=== PATIENT | male | born 1950 | race Two or more races ===

== ENCOUNTER 2017-07-04 09:54 | Emergency (ER) | payer MEDICARE ==
[2017-07-04 10:30] VITALS: TEMP 97.3; BMI 25.7
[2017-07-04] MEDS ORDERED: ONDANSETRON 4 MG/2 ML VIAL IVPUSH ONE (11:03)
[2017-07-04] MEDS ORDERED: MECLIZINE HCL 25 MG TABLET (FP) PO ONE (11:03)
[2017-07-04] MEDS ORDERED: METOCLOPRAMIDE HCL INJECTION 10 MG/2 ML VIAL IVPB ONE (11:04)
--- NOTE | 2017-07-04 11:05 | PDOC ---
History of Present Illness - General Chief Complaint: Nausea/Vomiting Stated Complaint: NAUSEA VOMITING Time Seen by Provider: 07/04/17 10:27 History Source: Patient Exam Limitations: No Limitations - History of Present Illness Initial Comments: 07/04/17 11:05 The patient is a 67M with a PMH of HTN and HLD who presents to the ER with complaints of dizziness. The patient states that his dizziness started on Tuesday out of nowhere. It was better as he laid down. He felt dizziness on Tuesday but it was much improved. This morning when he got up, he felt "a little dizzy" and then felt his symptoms worsen as he used the restroom. He states that he had associated CP for 45-50 seconds on the L side of his chest that did not radiate every time he felt a spinning sensation. He describes his dizziness as a room spinning sensation. He denies any dysarthria and diplopia or other changes in vision. Past History - Past Medical History Allergies/Adverse Reactions: Allergies Allergy/AdvReac Type Severity Reaction Status Date / Time No Known Allergies Allergy Verified 07/04/17 10:10 Home Medications: Ambulatory Orders Aspirin [Aspirin EC] 81 mg PO DAILY 07/04/17 Atorvastatin Ca [Lipitor] 40 mg PO HS 07/04/17 Hydrochlorothiazide 25 mg PO DAILY 07/04/17 Meclizine HCl [Antivert -] 25 mg PO BID #30 tablet 07/04/17 Metoprolol Succinate 25 mg PO DAILY 07/04/17 Ticagrelor [Brilinta] 90 mg PO BID 07/04/17 Cancer: Yes (prostate) COPD: No HTN: Yes - Surgical History Cardiac Surgery: Yes (cardiac cath 12/13) - Suicide/Smoking/Psychosocial Hx Smoking History: Never smoked Review of Systems - Review of Systems Able to Perform ROS?: Yes Comments:: 07/04/17 13:29 GENERAL/CONSTITUTIONAL: No fever or chills. No weakness. HEAD, EYES, EARS, NOSE AND THROAT: No change in vision. No ear pain or discharge. No sore throat. CARDIOVASCULAR: Positive for CP during spinning sensations. No palpitations or lightheadedness. RESPIRATORY: No cough, wheezing, shortness of breath, or hemoptysis. GASTROINTESTINAL: No nausea, vomiting, diarrhea, constipation, or abdominal pain. GENITOURINARY: No dysuria, frequency, hematuria, or change in urination. MUSCULOSKELETAL: No joint or muscle swelling or pain. No neck or back pain. SKIN: No rash or lesions. NEUROLOGIC: Positive for room spinning sensation. No headache, numbness, tingling, weakness, loss of consciousness, or change in strength/sensation. ENDOCRINE: No increased thirst. No abnormal weight change. HEMATOLOGIC/LYMPHATIC: No anemia, easy bleeding, or history of blood clots. ALLERGIC/IMMUNOLOGIC: No hives or skin allergy. Is the patient limited Sami proficient: No *Physical Exam - Vital Signs Last Vital Signs Temp Pulse Resp BP Pulse Ox 97.3 F L 73 18 154/92 100 07/04/17 10:10 07/04/17 10:10 07/04/17 10:10 07/04/17 10:10 07/04/17 10:10 - Physical Exam Comments: 07/04/17 13:30 GENERAL: Well developed, well nourished. Awake and alert. No acute distress. HEENT: Normocephalic, atraumatic. Hearing grossly normal. Moist mucous membranes. PERRLA, EOMI. No conjunctival pallor. Sclera are non-icteric. Oropharynx is clear. NECK: Supple. Full ROM. No JVD. No lymphadenopathy. CARDIOVASCULAR: Regular rate and rhythm. No murmurs, rubs, or gallops. PULMONARY: No evidence of respiratory distress. Lungs clear to auscultation bilaterally. No wheezing, rales or rhonchi. ABDOMINAL: Soft. Non-tender. Non-distended. No rebound or guarding. No organomegaly. Normoactive bowel sounds. GENITOURINARY: No CVA tenderness bilaterally. MUSCULOSKELETAL: Normal range of motion at all joints. No bony deformities or tenderness. EXTREMITIES: No cyanosis. No clubbing. No edema. No calf tenderness. SKIN: Warm and dry. Normal capillary refill. No rashes. No jaundice. NEUROLOGICAL: Alert, awake, appropriate. Cranial nerves 2-12 intact. No deficits to light touch and temperature in face, upper extremities and lower extremities. No motor deficits in the in face, upper extremities and lower extremities. Finger to nose normal, heel to dimas normal. Normal speech. Gait is steady, but slow and mildly ataxic. PSYCHIATRIC: Cooperative. Good eye contact. Appropriate mood and affect. Heart Score/ECG Review #1 ECG reviewed & interpreted by me at: 11:00 General ECG Interpretation: Sinus Rhythm, Normal Rate, Normal Intervals, No acute ischemic changes Compared to previous ECG there are: No significant change ED Treatment Course - LABORATORY CBC & Chemistry Diagram: 07/04/17 11:11 07/04/17 11:11 Medical Decision Making - Medical Decision Making 07/04/17 12:48 The patient is a 67M presenting with vertiginous symptoms. Reglan and meclizine have helped control his symptoms. He was able to ambulate to the restroom with improvement of his dizziness. He feels much better and is not nauseous. Will d/ c with meclizine. *DC/Admit/Observation/Transfer Diagnosis at time of Disposition: Dizziness - Discharge Dispostion Disposition: HOME Condition at time of disposition: Stable Admit: No - Prescriptions Prescriptions: Meclizine HCl [Antivert -] 25 mg PO BID #30 tablet - Referrals Referrals: Dionicio Donahue MD [Staff Physician] - - Patient Instructions Printed Discharge Instructions: Vertigo Additional Instructions: Please return to the ER if symptoms persist, worsen, or new symptoms arise. Please follow up with your primary care physician in 2-3 days. Please make an appointment with the neurologist. Please return to the ER if you have any signs or symptoms of chest pain, shortness of breath, uncontrollable fever, chills, nausea, vomiting, numbness, tingling, or weakness in any part of your body, changes in vision, or slurred speech. Please take your medications as prescribed. - Post Discharge Activity
[2017-07-04] MEDS ORDERED: METOCLOPRAMIDE HCL INJECTION 10 MG/2 ML VIAL ONE (11:12)
--- NOTE | 2017-07-04 11:16 | PDOC ---
Attending Attestation - Resident Resident Name: SivalandryYazan - ED Attending Attestation I have performed the following: I have examined & evaluated the patient, The case was reviewed & discussed with the resident, I agree w/resident's findings & plan, Exceptions are as noted - HPI HPI: 07/04/17 13:08 67y M hx of htn, hlm presents with complaint of dizzines. On Sat, felt episode of dizziness/vertigo briefly, but then felt better. He went to the bathroom this morning when he felt room spinning dizziness that lasted until he came to th D. The pt erports some nausae/vomiting. Hedenies any recent URI/cough, tinnitus, vision changes/diplopia, dysarthria, focal weakness, numnbe/sstingling , cp, sob, palpitations, fever/chills. Sypmtoms resolved at rest and worsened with moving his head around. Pts exam is unremarkble card: rrr pulm cta b/l neuro, no facial assymetric, strength 5/5 in upper/lower, sensation grossly symmetric in upper/lower extremities, finger to nose, rapid altrnating movements , heel dimas intact, normal gait suspect bppv no signs or symptoms suggestive of posterior cva o rcentral vertigo will dc the pt with meclizine and reglan for nausea will have pt fu with pmd - Physicial Exam PE: 07/05/17 08:15 se above - Medical Decision Making 07/05/17 08:15 see above Heart Score/ECG Review - ECG Impressions Comment:: 07/04/17 13:05 Twelve-lead EKG was performed and reviewed by me. There is normal sinus rhythm with a normal rate. rate of 64 The axis is normal. incomplete left bundle branch block
[2017-07-04 11:25] LABS: BASO % 0.6 % (0-2.0); HEMOGLOBIN 14.3 GM/dL (11.7-16.9); LYMPH % 22.5 % (8-40); MCH 28.9 pg (25.7-33.7); MCHC 32.5 g/dl (32.0-35.9); MEAN CELL VOLUME 88.8 fl (80-96); MEAN PLT VOLUME 7.8 fl (7.5-11.1); MONO % 7.6 % (3.8-10.2); NEUT % 68.3 % (42.8-82.8); PLATELET COUNT 186 K/MM3 (134-434); RBC 4.95 M/mm3 (4.00-5.60); RDW 13.5 % (11.9-15.9); WHITE BLOOD COUNT 5.5 K/mm3 (4.0-10.0)
[2017-07-04 11:43] LABS: INR 1.03 (0.82-1.09); PROTHROMBIN TIME (PATIENT) 11.6 SEC (9.98-11.88)
[2017-07-04] MEDS ORDERED: MECLIZINE HCL 25 MG TABLET (FP) ONE (11:43)
[2017-07-04 11:46] LABS: ACTIVATED PTT 32.1 SECONDS (26.9-34.4)
[2017-07-04 11:54] LABS: ALBUMIN 4.2 g/dl (3.4-5.0); ANION GAP 10 (8-16); BILIRUBIN,TOTAL 0.4 mg/dL (0.2-1.0); BLOOD UREA NITROGEN 24 mg/dL (7-18); CALCIUM 8.7 mg/dL (8.5-10.1); CHLORIDE 102 mmol/L (98-107); CO2 27 mmol/L (21-32); GLUCOSE,RANDOM 124 mg/dL (74-106); SGOT/AST 28 U/L (15-37); SGPT/ALT 48 U/L (12-78); SODIUM 139 mmol/L (136-145); TOT PROT 7.2 g/dl (6.4-8.2)
[2017-07-04 11:57] LABS: ALK PHOS 61 U/L (45-117)
--- NOTE | 2017-07-04 12:40 | EKG ---
Test Reason : Blood Pressure : / mmHG Vent. Rate : 064 BPM Atrial Rate : 064 BPM P-R Int : 204 ms QRS Dur : 114 ms QT Int : 428 ms P-R-T Axes : 047 006 020 degrees QTc Int : 441 ms NORMAL SINUS RHYTHM NONSPECIFIC ST AND T WAVE ABNORMALITY BORDERLINE ECG NO PREVIOUS ECGS AVAILABLE Confirmed by WILLY ESCOBEDO MD ([id number]) on 07/04/2017 12:40:21 PM Referred By: Confirmed By:WILLY ESCOBEDO MD
[2017-07-04 13:50] VITALS: BP 158/94; PULSE 65
== END 2017-07-04 13:50 | disposition home or self-care (01) ==
LOC: JER 09:54
PROC: 3E033GC Introduction of Other Therapeutic Substance into Peripheral Vein, Percutaneous Approach (ICD-10-PCS; principal; 2017-07-04)
DX: R42 Dizziness and giddiness (principal); I10 Essential (primary) hypertension; E78.00 Pure hypercholesterolemia, unspecified; Z85.46 Personal history of malignant neoplasm of prostate
CPT/HCPCS: 36415; 80053; 82550; 82553; 84484; 85025; 85610; 85730; 93005; 93010; 96374; 99282-25

== ENCOUNTER 2020-04-07 18:05 | Observation (INO) | payer OTHER ==
[2020-04-07 18:37] VITALS: BMI 27.6
[2020-04-07 20:53] LABS: BASO % 0.7 % (0-2.0); EOS % 2.4 % (0-4.5); HEMATOCRIT 42.4 % (35.4-49); HEMOGLOBIN 14.2 GM/dL (11.7-16.9); LYMPH % 39.4 % (8-40); MCH 29.6 pg (25.7-33.7); MCHC 33.4 g/dl (32.0-35.9); MEAN CELL VOLUME 88.5 fl (80-96); MEAN PLT VOLUME 7.7 fl (7.5-11.1); MONO % 13.5 % (3.8-10.2); PLATELET COUNT 192 K/MM3 (134-434); RDW 14.7 % (11.9-15.9); WHITE BLOOD COUNT 4.8 K/mm3 (4.0-10.0)
[2020-04-07 21:07] LABS: INR 0.93 (0.83-1.09); PROTHROMBIN TIME (PATIENT) 11.5 SEC (9.7-13.0)
[2020-04-07 21:10] LABS: CHLORIDE 103 mmol/L (98-107); SODIUM 139 mmol/L (136-145)
[2020-04-07 21:12] LABS: CALCIUM 9.3 mg/dL (8.5-10.1)
[2020-04-07 21:13] LABS: ALBUMIN 4.1 g/dl (3.4-5.0); ANION GAP 4 MMOL/L (8-16); BLOOD UREA NITROGEN 16.6 mg/dL (7-18); CO2 32 mmol/L (21-32); GLUCOSE,RANDOM 103 mg/dL (74-106)
[2020-04-07 21:16] LABS: SGOT/AST 24 U/L (15-37); SGPT/ALT 46 U/L (13-61)
[2020-04-07 21:17] LABS: BILIRUBIN,TOTAL 0.3 mg/dL (0.2-1)
[2020-04-07 21:18] LABS: TOT PROT 7.3 g/dl (6.4-8.2)
[2020-04-07 21:19] LABS: ALK PHOS 67 U/L (45-117)
[2020-04-07 21:21] LABS: N-TERMINAL BNP 22.4 pg/ml (5-125)
[2020-04-07] MEDS ORDERED: ASPIRIN 81 MG CHEWABLE TABLETS PO ONE (21:59)
[2020-04-07] MEDS ORDERED: ASPIRIN 81 MG CHEWABLE TABLETS ONE (22:29)
[2020-04-08 04:39] LABS: URINE APPEARANCE CLEAR; URINE BILIRUBIN NEGATIVE (NEGATIVE); URINE COLOR YELLOW; URINE GLUCOSE (UA) NEGATIVE (NEGATIVE); URINE KETONE NEGATIVE (NEGATIVE); URINE LEUK ESTERASE NEGATIVE (NEGATIVE); URINE NITRITE NEGATIVE (NEGATIVE); URINE PROTEIN NEGATIVE (NEGATIVE); URINE UROBILINOGEN 0.2 mg/dL (0.2-1.0)
[2020-04-08 07:22] LABS: BASO % 0.5 % (0-2.0); EOS % 2.3 % (0-4.5); HEMATOCRIT 42.1 % (35.4-49); HEMOGLOBIN 13.8 GM/dL (11.7-16.9); LYMPH % 45.3 % (8-40); MCH 28.8 pg (25.7-33.7); MCHC 32.8 g/dl (32.0-35.9); MEAN CELL VOLUME 87.7 fl (80-96); MEAN PLT VOLUME 7.8 fl (7.5-11.1); MONO % 11.7 % (3.8-10.2); NEUT % 40.2 % (42.8-82.8); PLATELET COUNT 197 K/MM3 (134-434); RDW 14.7 % (11.9-15.9); WHITE BLOOD COUNT 4.6 K/mm3 (4.0-10.0)
[2020-04-08 07:35] LABS: CHLORIDE 104 mmol/L (98-107); POTASSIUM 4.6 mmol/L (3.5-5.1); SODIUM 141 mmol/L (136-145)
[2020-04-08 07:44] LABS: CALCIUM 9.7 mg/dL (8.5-10.1); GLUCOSE,RANDOM 97 mg/dL (74-106)
[2020-04-08 07:45] LABS: ALBUMIN 3.8 g/dl (3.4-5.0); ANION GAP 5 MMOL/L (8-16); BLOOD UREA NITROGEN 16.5 mg/dL (7-18); CO2 32 mmol/L (21-32); MAGNESIUM 2.3 mg/dL (1.8-2.4)
[2020-04-08 07:47] LABS: CHOLESTEROL 195 mg/dL (50-200); PHOSPHOROUS 4.5 mg/dL (2.5-4.9); SGOT/AST 22 U/L (15-37)
[2020-04-08 07:48] LABS: BILIRUBIN,TOTAL 0.5 mg/dL (0.2-1); LDL CHOLESTEROL (ONLY SJRH) 103 mg/dL (5-100); TRIGLYCERIDES 248 mg/dL (0-150)
[2020-04-08 07:49] LABS: HDL CHOLESTEROL 60 mg/dL (40-60); SGPT/ALT 44 U/L (13-61); TOT PROT 7.1 g/dl (6.4-8.2)
[2020-04-08 07:50] LABS: ALK PHOS 60 U/L (45-117)
[2020-04-08] MEDS ORDERED: ENOXAPARIN NA (PORCINE) 40 MG/0.4 ML DISP.SYRIN SQ SCH (10:00)
[2020-04-08] MEDS ORDERED: ASPIRIN COATED 81 MG TABLET.EC PO SCH (10:00)
[2020-04-08] MEDS ORDERED: ASPIRIN COATED 81 MG TABLET.EC ONE (10:15)
[2020-04-08] MEDS ORDERED: ENOXAPARIN NA (PORCINE) 40 MG/0.4 ML DISP.SYRIN SQ ONE (10:15)
[2020-04-08] MEDS ORDERED: metoPROLOL SUCCINATE 25 MG TAB.SR.24H (FP) PO SCH (11:00)
[2020-04-08] MEDS ORDERED: TICAGRELOR 60 MG TABLET PO SCH (11:00)
[2020-04-08] MEDS ORDERED: RANOLAZINE E.R. 500 MG TABLET (FP) PO SCH (13:15)
[2020-04-08] MEDS ORDERED: TICAGRELOR 90 MG TABLET PO ONE (13:28)
[2020-04-08 13:43] VITALS: BP 137/74; PULSE 50; TEMP 97
[2020-04-08] MEDS ORDERED: ATORVASTATIN CA 40 MG TABLET (FP) PO SCH (22:00)
== END 2020-04-08 15:36 | disposition home or self-care (01) ==
LOC: JER 18:05 → JERBED 22:02 → INTOOBSV 23:58 → OBSVTOIN 23:58
PROVIDERS: ADMIT Internal Medicine; ATTEND Internal Medicine
PROC: 3E023GC Introduction of Other Therapeutic Substance into Muscle, Percutaneous Approach (ICD-10-PCS; principal; 2020-04-07)
DX: I24.9 Acute ischemic heart disease, unspecified (principal); I25.10 Atherosclerotic heart disease of native coronary artery without angina pectoris; I11.9 Hypertensive heart disease without heart failure; G89.29 Other chronic pain; Z95.5 Presence of coronary angioplasty implant and graft; E78.5 Hyperlipidemia, unspecified; Z85.46 Personal history of malignant neoplasm of prostate; R00.1 Bradycardia, unspecified; Z29.9 Encounter for prophylactic measures, unspecified; R07.9 Chest pain, unspecified
CPT/HCPCS: 36415; 71046-TC-FY; 80053; 80061; 81003; 82550; 82553; 83721; 83735; 83880; 84100; 84443; 84484; 85025; 85610; 93005; 93010; 93306-TC; 93971-TC; 96372; 99285-25; C9803; G0378; U0003

== ENCOUNTER 2022-07-24 16:12 | Observation (INO) | payer OTHER ==
[2022-07-24] MEDS ORDERED: FAMOTIDINE 20 MG/50 ML IVPB 20 MG/50 ML MG IVPB ONE ×2 (17:04→17:16)
[2022-07-24] MEDS ORDERED: MAG HYDROX/AL HYDROX/SIMETH -MYLANTA- ORAL SUSPENSION PO ONE (17:04)
[2022-07-24] MEDS ORDERED: MAG HYDROX/AL HYDROX/SIMETH 30 ML UNIT-DOSE CUP ONE (17:16)
[2022-07-24 17:37] LABS: BASO % 0.7 % (0-2.0); EOS % 1.6 % (0-4.5); HEMOGLOBIN 13.7 GM/dL (11.7-16.9); LYMPH % 37.3 % (8-40); MCH 29.9 pg (25.7-33.7); MCHC 34.2 g/dl (32.0-35.9); MEAN CELL VOLUME 87.5 fl (80-96); MEAN PLT VOLUME 7.1 fl (7.5-11.1); MONO % 12.9 % (3.8-10.2); NEUT % 47.5 % (42.8-82.8); PLATELET COUNT 207 10^3/uL (134-434); RBC 4.57 M/mm3 (4.00-5.60); RDW 14.8 % (11.9-15.9); WHITE BLOOD COUNT 5.3 K/mm3 (4.0-10.0)
[2022-07-24 19:01] LABS: CALCIUM 9.5 mg/dL (8.5-10.1)
[2022-07-24 19:04] LABS: CREATININE 1.1 mg/dL (0.55-1.3)
[2022-07-24 19:06] LABS: BILIRUBIN,TOTAL 0.4 mg/dL (0.2-1); TOT PROT 7.3 g/dl (6.4-8.2)
[2022-07-24] MEDS ORDERED: ENOXAPARIN NA (PORCINE) 40 MG/0.4 ML DISP.SYRIN SQ ONE (21:17)
[2022-07-24] MEDS: ENOXAPARIN NA (PORCINE) 40 MG/0.4 ML DISP.SYRIN SQ SCH (21:26)
[2022-07-24] MEDS ORDERED: ATORVASTATIN CA 80 MG TABLET (FP) PO SCH (22:00)
[2022-07-25 02:06] VITALS: RESP 20
[2022-07-25 02:28] VITALS: BMI 26.4
[2022-07-25 06:44] VITALS: TEMP 98.2
[2022-07-25 08:20] LABS: HEMATOCRIT 39.1 % (35.4-49); HEMOGLOBIN 13.4 GM/dL (11.7-16.9); MCH 29.9 pg (25.7-33.7); MCHC 34.3 g/dl (32.0-35.9); MEAN CELL VOLUME 87.1 fl (80-96); MEAN PLT VOLUME 7.9 fl (7.5-11.1); PLATELET COUNT 213 10^3/uL (134-434); RBC 4.49 M/mm3 (4.00-5.60); RDW 14.4 % (11.9-15.9); WHITE BLOOD COUNT 5.3 K/mm3 (4.0-10.0)
[2022-07-25 08:37] LABS: CALCIUM 9.2 mg/dL (8.5-10.1)
[2022-07-25 08:38] LABS: ALBUMIN 3.8 g/dl (3.4-5.0); BLOOD UREA NITROGEN 16.7 mg/dL (7-18)
[2022-07-25 08:41] LABS: BILIRUBIN,TOTAL 0.7 mg/dL (0.2-1)
[2022-07-25 08:42] LABS: TOT PROT 6.6 g/dl (6.4-8.2)
[2022-07-25 09:26] VITALS: BP 168/88; PULSE 68
[2022-07-25] MEDS: ENOXAPARIN NA (PORCINE) 40 MG/0.4 ML DISP.SYRIN SQ SCH (09:27)
[2022-07-25] MEDS ORDERED: HYDROCHLOROTHIAZIDE 25 MG TABLET (FP) PO SCH (10:00)
[2022-07-25] MEDS ORDERED: LOSARTAN POTASSIUM 50 MG TABLET PO SCH (10:00)
[2022-07-25] MEDS ORDERED: SOLIFENACIN SUCCINATE 5 MG TAB PO SCH (10:00)
[2022-07-25] MEDS ORDERED: metoPROLOL SUCCINATE 25 MG TAB.SR.24H (FP) PO SCH (10:00)
[2022-07-25] MEDS ORDERED: ASPIRIN COATED 81 MG TABLET.EC PO SCH (10:00)
[2022-07-25] MEDS ORDERED: PATIENT'S OWN MEDICATION (NON-FORMULARY) (Losartan/Hydrochlorothiazide [Hyzaar 100-25 Tabl PO SCH (10:00)
== END 2022-07-25 11:05 | disposition home or self-care (01) ==
LOC: JER 16:12 → JERBED 18:24 → INTOOBSV 20:49 → OBSVTOIN 20:49 → J4W 22:19
PROVIDERS: ADMIT Internal Medicine; ATTEND Internal Medicine
PROC: 3E023GC Introduction of Other Therapeutic Substance into Muscle, Percutaneous Approach (ICD-10-PCS; principal; 2022-07-24)
PROC: 3E033GC Introduction of Other Therapeutic Substance into Peripheral Vein, Percutaneous Approach (ICD-10-PCS; 2022-07-24)
DX: I25.10 Atherosclerotic heart disease of native coronary artery without angina pectoris (principal); I11.9 Hypertensive heart disease without heart failure; R07.9 Chest pain, unspecified; E78.5 Hyperlipidemia, unspecified; Z95.5 Presence of coronary angioplasty implant and graft; Z85.46 Personal history of malignant neoplasm of prostate; R32 Unspecified urinary incontinence
CPT/HCPCS: 0241U-QW; 36415; 71046-TC-FY; 80053; 80061; 83690; 84484; 85025; 85027; 93005; 93010; 96365; 96372; 99283-25; G0378

== ENCOUNTER 2024-01-11 15:38 | Emergency (ER) | payer OTHER ==
[2024-01-11 16:08] VITALS: BP 143/69; PULSE 72; RESP 18; TEMP 98.4; BMI 26.9
[2024-01-11 17:42] LABS: BASO % 0.9 % (0-2.0); EOS % 3.5 % (0-4.5); HEMATOCRIT 39.8 % (35.4-49); HEMOGLOBIN 13.6 GM/dL (11.7-16.9); MCH 30.1 pg (25.7-33.7); MCHC 34.3 g/dl (32.0-35.9); MEAN CELL VOLUME 87.9 fl (80-96); MEAN PLT VOLUME 7.2 fl (7.5-11.1); NEUT % 54.6 % (42.8-82.8); PLATELET COUNT 209 10^3/uL (134-434); RBC 4.53 M/mm3 (4.00-5.60); RDW 14.3 % (11.9-15.9); WHITE BLOOD COUNT 4.6 K/mm3 (4.0-10.0)
[2024-01-11] MEDS ORDERED: ACETAMINOPHEN INJECTION 100 ML IVPB ONE (17:44)
[2024-01-11] MEDS: ACETAMINOPHEN 1000 MG/100 ML BAG IVPB ONE (17:53)
[2024-01-11 18:13] LABS: POTASSIUM 3.9 mmol/L (3.5-5.1)
[2024-01-11 18:15] LABS: CALCIUM 9.3 mg/dL (8.5-10.1)
[2024-01-11 18:16] LABS: ALBUMIN 3.9 g/dl (3.4-5.0); BLOOD UREA NITROGEN 14.7 mg/dL (7-18); MAGNESIUM 2.3 mg/dL (1.8-2.4)
[2024-01-11 18:20] LABS: BILIRUBIN,TOTAL 0.4 mg/dL (0.2-1)
[2024-01-11 18:21] LABS: TOT PROT 6.9 g/dl (6.4-8.2)
== END 2024-01-11 19:18 | disposition home or self-care (01) ==
LOC: JER 15:38
DX: R07.9 Chest pain, unspecified (principal)
CPT/HCPCS: 0241U-QW; 36415; 71046-TC-FY; 80053; 83735; 84484; 85025; 93005; 93010; 99283-25; J0131